=== PATIENT | female | born 1955 | race Caucasian/White ===

== ENCOUNTER → 2018-12-31 06:56 | Day surgery (SDC) | payer BC ==
--- NOTE | 2018-12-28 18:04 | HP ---
CC: Dr. Nitish Payne; Dr. Janette Aviles; Dr. Garcia, radiation oncologist, [place], [place] * ADMISSION HISTORY AND PHYSICAL: DATE OF ADMISSION: 12/31/18 ATTENDING SURGEON: Dr. Angelita Bolton.* (DICTATED BY TORREY DOMINGUEZ) CHIEF COMPLAINT: Left breast cancer. HISTORY OF PRESENT ILLNESS: This is a 63-year-old female who is status post treatment of a right breast cancer in 2002 and who has been followed with annual exams and mammograms and who had not herself noted any recent changes in either breast. She underwent routine screening mammography on 11/25/18, which showed a new shadowing lesion in the left breast. This was confirmed by ultrasound on same date showing a 1.8 x 1.9 x 1.4 cm lesion at the 9 o'clock position of the left breast located 2 cm from the nipple. Most of the details of her imaging were obtained from her chart records as I do not have those specific reports available.The patient is able to notice a lump there now, though she is post biopsy. She has not had any other changes to report. 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 Estrogen and progesterone receptors were positive. HER2/ elina was negative. She underwent lumpectomy for an ER/IA negative, HER2/elina positive right breast cancer in 2002 with postoperative chemotherapy and radiation therapy and with no evidence of recurrence. Her family history is notable for paternal aunt who in her 60s with history of both ovarian and breast cancer as well as 2 paternal first cousins both with history of breast cancer. The patient had recently undergone testing and was found to be negative for BRCA. She was seen in the office by Dr. Bolton on 12/16/18. Her imaging and workup as well as biopsy were reviewed. Her exam at that time was notable for scars in the right breast with some asymmetry. There was noted to be some flattening of the medial aspect of the left breast as well as bruising from recent biopsy. The left breast by palpation was dense. There was flattening noted of both nipples. There was a small erythematous area at the inferior aspect of the left nipple. The right breast was noted to be dense without any palpable nodules. The left breast nodule was described as firm and somewhat irregular and semi-mobile located at the 9 o'clock position as described above. There was no palpable cervical, supraclavicular, or axillary lymphadenopathy bilaterally. Dr. Bolton has discussed with the patient the indications for surgery, the risks, benefits, and alternatives, and she would like to proceed as scheduled with excision of left breast cancer (following needle localization) and sentinel lymph node biopsy. PAST MEDICAL HISTORY: Breast cancer as noted above, hypertension, obesity, environmental allergies, nephrolithiasis (status post ESWL; the patient does have at least 1 existing nonobstructing stone that is being followed by Urology) . PAST SURGICAL HISTORY: Right ankle ORIF and right breast surgery as noted above. CURRENT MEDICATIONS: 1. Enalapril 2.5 mg once daily. 2. Flonase 2 sprays each nostril once daily p.r.n. (not currently using). 3. Zyrtec 10 mg once daily. 4. Multivitamin once daily. 5. Vitamin D 2000 International Units once daily. 6. Monthly allergy injections. DRUG ALLERGIES: ERYTHROMYCIN (dysuria). FAMILY HISTORY: No family history of anesthesia problems, bleeding or clotting disorders. Additional family history as noted above. SOCIAL HISTORY: The patient is . 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 She denies use of tobacco. Drinks alcohol infrequently and denies any other recreational drug use. REVIEW OF SYSTEMS: General: No recent constitutional symptoms or acute illnesses. Her weight has been stable. HEENT: No problems reported. Cardiovascular: No chest pain, palpitations, or heart murmur. Respiratory: No history of asthma, chronic cough, or shortness of breath. GI: No problems reported. Colonoscopy done within the past 5 to 10 years reportedly normal. : No problems reported. CHANGE OF ADDRESS CLERK: She is up-to-date within the past year for pelvic exam and within the past 2 years for Pap smear, all reportedly normal. Endocrine: No diabetes or thyroid dysfunction. PHYSICAL EXAMINATION GENERAL: Well-nourished, obese female, in no acute distress. VITAL SIGNS: Height 67 inches, weight 215 pounds. Blood pressure 124/78, pulse 68, respirations 16. HEENT: Pupils are equal, round, and reactive. EOMs intact. No conjunctival pallor. Oropharynx: Teeth in good repair. No intraoral lesions. NECK: No lymphadenopathy, thyromegaly, or masses. LUNGS: Clear to auscultation. No rales or wheezes. HEART: Regular rate and rhythm. No murmur noted. BREASTS: Not reexamined today. See above per Dr. Bolton's exam. ABDOMEN: Soft, nontender to palpation. No palpable masses or organomegaly. GENITALIA: Not done. RECTAL: Not done. BACK: No spinous process or CVA tenderness. EXTREMITIES: Slight nonpitting edema of the right ankle (chronic per the patient). NEUROLOGICAL: Grossly intact. SKIN: Warm and dry. No suspicious rashes or lesions noted. IMPRESSION: Left breast cancer. PLAN: Excision of left breast cancer (after needle localization) and sentinel lymph node biopsy. TORREY DOMINGUEZ [id number]/[facility] #: [id number] [facility]
[~2018-12-31 06:56] MED LIST: Buffered Lidocaine 1% SYRIN* 1 ML/SYRINGE INTRADERM ONE; Bupivacaine 0.5% W/EPI SDV* 30 ML VIAL ONE; Dexamethasone IV* 4 MG/ML 1 ML (4 MG) ONE; Famotidine IV* 10 MG/ML 2 ML (20 mg) IV ONE; Famotidine IV* 10 MG/ML 2 ML (20 mg) ONE; Glycopyrrolate IV* 0.2 MG/ML 1 ML VIAL ONE; KETAMINE HCL* 50 MG/ML 10 ML VIAL ONE; Ketorolac INJ* 30 MG/ML 1 ML VIAL ONE; Lactated Ringers 1000 ML Bag* 1,000 ML IV SCH; Lidocaine 1% INJ* 10 MG/ML 30 ML SDV ONE; Lidocaine 2% PF * 5 ML VIAL ONE; Lidocaine 2.5%/Prilocain 2.5%* 5 GM TUBE ONE; Methylene Blue 0.5 %* 50 MG/10 ML AMP IV ONE; Midazolam* 1 MG/ML 2 ML VIAL (2 MG) ONE; Midazolam* 1 MG/ML 5 ML VIAL (5 MG) ONE; Naloxone* 0.4 MG/ML 1 ML VIAL IV PRN; Ondansetron INJ* 2 MG/ML VIAL IV PRN; Ondansetron INJ* 2 MG/ML VIAL ONE; Propofol* 10 MG/ML 20 ML BTL ONE; ceFAZolin 2 GM PREMIX in ORs 2 GM/50 ML BAG IVPB ONE; fentaNYL* 50 MCG/ML 2 ML VIAL (100 MCG VIAL) IV PRN; fentaNYL* 50 MCG/ML 2 ML VIAL (100 MCG VIAL) ONE; oxyCODONE/Acetamin 5/325 MG* TAB PO PRN
--- NOTE | 2018-12-31 12:44 | OP ---
Operative Report - Blank - Operative Report Date of Operation: 12/31/18 Note: Brief Operative Note Preop Dx: Left breast cancer Postop Dx: same Procedure: wide excision Left breast cancer; sentinel lymph node biopsy Anesthesia: local MAC Surgeon: Hoang Roll Forming Supervisor: TORREY Marley Fluids: 1000 ml crystalloid EBL: < 50 ml Specimen: Left breast lump; sentinel lymph node Drains: none Findings: dictated
[2018-12-31 14:02] VITALS: BP 127/86
--- NOTE | 2018-12-31 14:29 | OP ---
CC: [facility]; Dr. Alfonso Garcia in [place].* DATE OF OPERATION: 12/31/18 - [facility] DATE OF : 53 SURGEON: Angelita Bolton MD REGISTRATION REPRESENTATIVE: TORREY Jerome PRE-OP DIAGNOSIS: Left breast cancer. POST-OP DIAGNOSIS: Left breast cancer. OPERATIVE PROCEDURE: Needle localization excision of left breast cancer and sentinel lymph node biopsy. INDICATIONS: Ms. Ignacio is a 63-year-old woman recently diagnosed with right breast cancer. She opted for breast conservation and on the morning of surgery underwent needle localization and sentinel lymph node localization without difficulty. DESCRIPTION OF PROCEDURE: She was then brought to the operating room, placed on the OR table in supine position and given IV sedation. The left breast and the axilla were prepped and draped in the usual sterile fashion, taking care not to dislodge the localizing wire. After infiltrating with local anesthetic, an elliptical incision encompassing the wire was made and subcutaneous tissue was divided with electrocautery to excise the massive tissue from around the wire. This was marked in usual fashion and handed off as a specimen. Hemostasis was assured with electrocautery and some additional local was instilled into the wound and then closure was accomplished with 3-0 Vicryl in the subcutaneous layer and the skin was closed with 4-0 Prolene in a subcuticular fashion. Steri -Strips were applied along with a dry sterile dressing at the end of the case. Attention was then turned to the axilla. Using the navigator, the proximal location of the sentinel node was identified. This area was infiltrated with local anesthetic and an incision was made. Subcutaneous tissue was then divided with electrocautery down to the level where the sentinel node could be identified. It was able to be grasped with an Allis clamp and dissected free from surrounding tissue using sharp and blunt dissection. Clips were used to control the small blood and lymphatic vessels that approached the gland. Once it was out, it was handed off as a specimen also. In situ counts were around 5000, at which point, it was recognized that a small edge of the lymph node had remained in the axilla. This was then excised and handed off as a second specimen to go with the first sentinel node. It was not identified separately since it was probably part of the same node. It had counts of around 1000, then the axilla was checked for hemostasis. This appeared adequate and then the wound was irrigated. Some additional local was instilled into the wound and then closure was accomplished with 3-0 Vicryl in subcutaneous layer and 4-0 Prolene was used to close the skin in a subcuticular fashion. It should be mentioned that with regard to the breast site, clips were placed in the cavity to mono its confines prior to closing. Steri-Strips and dry sterile dressings were applied to both incision sites. All sponge and instrument counts were correct. The patient tolerated the procedure well and was transferred to recovery in a stable condition. [id number]/[facility] #: [id number]
== END | disposition home or self-care (01) ==
LOC: SDS 06:56
PROVIDERS: ATTEND Surgery
DX: C50.912 Malignant neoplasm of unspecified site of left female breast (principal); Z85.3 Personal history of malignant neoplasm of breast; I10 Essential (primary) hypertension; M19.90 Unspecified osteoarthritis, unspecified site; Z87.442 Personal history of urinary calculi
CPT/HCPCS: 77061; 78195; 88307; 88342; A9270-GY; A9541; G0279; J0690; J1100; J1885; J2250; J2405; J2704; J3010